=== PATIENT | male | born 2000 | race Two or more races ===

== ENCOUNTER 2024-06-06 19:59 | Emergency (ER) | payer MEDICAID, SELFPAY ==
[2024-06-06 20:01] VITALS: BMI 24.3
[2024-06-06 20:16] VITALS: BP 122/78; PULSE 94; RESP 18; TEMP 36.9; O2SAT 99
[2024-06-06] MEDS: CYCLObenzaPRINE 5 MG TABLET PO (20:42)
--- NOTE | 2024-06-06 20:42 | EDNOTE_ITS ---
ED Back Injury Pain RME/HPI General Chief Complaint: Back Pain/Injury Stated Complaint: BACK PAIN X5 MONTHS WORSE TODAY Time Seen by Provider: 06/06/24 20:19 Arrival date/time: 06/06/24 19:59 23M with no significant PMH presents to ED with 5 months of low back pain that got worse today. 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 Patient denies hematuria/dysuria, fall/trauma, paresthesia, and bowel/bladder incontinence. Limitations: no limitations Related Data Previous Rx's ?Medication ?Instructions ?Recorded cyclobenzaprine 5 mg tablet 5 mg PO TID PRN muscle spasm #30 06/06/24 tabs naproxen 500 mg tablet 500 mg PO BID PRN pain #30 tabs 06/06/24 Allergies Allergy/AdvReac Type Severity Reaction Status Date / Time No Known Allergies Allergy Verified 06/06/24 20:01 Review of Systems Review of Systems Systems Reviewed: All systems reviewed, normal except as documented Constitutional Constitutional: Reports system reviewed and no additional complaints, except as documented, Denies fever(s) and Denies headache(s) ENT Ears, Nose, Mouth, and Throat: Denies disequilibrium and Denies headache(s) Cardiovascular Cardiovascular: Reports system reviewed and no additional complaints, except as documented, Denies chest pain and Denies dyspnea Respiratory Respiratory: Reports system reviewed and no additional complaints, except as documented, Denies cough and Denies dyspnea Gastrointestinal Gastrointestinal: Reports system reviewed and no additional complaints, except as documented, Denies abdominal pain, Denies nausea and Denies vomiting Musculoskeletal Musculoskeletal: Reports as per HPI and Reports back pain Neurologic Neurologic: Reports system reviewed and no additional complaints, except as documented, Denies confusion, Denies disequilibrium and Denies headache(s) Psychiatric Psychiatric: Denies confusion Past Medical History Social History SMOKING STATUS: Never smoker ED Exam General Limitations: Present no limitations General appearance: Present alert and in no apparent distress Head Head exam: Present atraumatic Eye Eye exam: Present normal appearance, PERRL and EOMI ENT ENT exam: Present normal exam, normal oropharynx and mucous membranes moist Neck Neck exam: Present normal inspection, full ROM and trachea midline Chest Chest inspection: Present normal inspection and symmetric chest wall rise Respiratory Respiratory exam: Present normal lung sounds bilaterally Cardiovascular Cardiovascular exam: Present regular rate, normal rhythm and normal heart sounds Abdominal Exam Abdominal exam: Present soft and normal bowel sounds Extremities Exam Extremities exam: Present normal inspection and full ROM Back Exam Back exam: Present normal inspection and full ROM Neurological Exam Neurological exam: Present alert, oriented X3 and CN II-XII intact Psychiatric Psychiatric exam: Present normal affect and normal mood Skin Skin exam: Present warm, dry, intact and normal color Course Quality Measures none Orders Category Date Time Status CYCLObenzaPRINE [Flexeril] Med 06/06/24 20:27 Discontinued 5 mg PO X1 ONE Ketorolac Inj [Toradol Inj] Med 06/06/24 20:27 Discontinued 60 mg IM X1 ONE Vital Signs Vital signs: Vital Signs Temperature 98.5 F 06/06/24 20:16 Pulse Rate 94 06/06/24 20:16 Respiratory Rate 18 06/06/24 20:16 Blood Pressure 122/78 06/06/24 20:16 Pulse Oximetry (%) 99 06/06/24 20:16 Oxygen Delivery Method Room Air 06/06/24 20:16 O2 at 99% on RA and WNLs Back Pain / Injury MDM Narrative MDM Narrative:: 23M with no significant PMH presents to ED with 5 months of low back pain that got worse today. 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 Patient denies hematuria/dysuria, fall/trauma, paresthesia, and bowel/bladder incontinence. Physical exam reveals no back tenderness. Pain is with ROM, which is mostly intact. Patient is afebrile, calm, and alert. Meds improved symptoms. Rn Document Improvement given. Patient data External records reviewed:: None Clinical information provided by:: patient Social determinants that could affect healthcare access:: none Patient has the following chronic illnesses:: none How is presenting disease/condition affected by chronic disease/condition?: no chronic disease Evaluation data The following diagnostics were reviewed and interpreted by me:: other (specify) (none) Lab and/or radiology exams considered but not ordered:: not ordered Interpretation Summary: n/a Medications / Prescriptions Medications or Prescriptions considered but not ordered:: ordered Medication administrations:: Medication Administration History Discontinued Medications Cyclobenzaprine HCl (Cyclobenzaprine 5 Mg Tablet) 5 mg PO X1 ONE Stop: 06/06/24 20:28 Last Admin: 06/06/24 20:42 Dose: 5 mg Documented By: DOE Ketorolac Tromethamine (Ketorolac Inj 60 Mg/2 Ml Vial) 60 mg IM X1 ONE Stop: 06/06/24 20:28 Last Admin: 06/06/24 20:50 Dose: 60 mg Documented By: SF above Consultations Consultation(s) initiated? (list below): No Diagnosis Differential diagnosis back pain/injury: lumbar radiculopathy, sciatica, strain of lumbar region, renal colic, pyelonephritis, thoracic back pain, AAA and discitis Most likely diagnosis given after review of the tests above:: strain of lumbar region Admission Indicated Admission indicated?: not indicated Admission Request Was there a request for admission?: No Disposition Plan Disposition Plan: Discharge Discharge Attestation Discharge Attestation: The patient and all family members were given an opportunity to ask questions and understood the discharge instructions. Discharge instructions specifically effects, indications for sooner follow up or return to the emergency department, and the expected course of current diagnosis. Patient condition: Stable Discharge Plan Plan Patient Disposition: HOME (Self Care) Disposition Comment: Stable Prescriptions/Referrals Prescriptions/Med Rec: New naproxen 500 mg tablet 500 mg PO BID PRN (Reason: pain) Qty: 30 0RF cyclobenzaprine 5 mg tablet 5 mg PO TID PRN (Reason: muscle spasm) Qty: 30 0RF Referrals: Jose Bashir MD [Primary Care Provider] - In 1 week Problem List Clinical Impression: Strain of lumbar region Patient/Caregiver Discharge Instructions Education Materials: ED Back Sprain/Strain Additional Instructions: Please follow-up with PCP within 24-48 hours and return immediately if symptoms worsen. If problem persists, recommend outpatient PT and/or MRI follow-up. In the meantime, rest, use ice/heat, and/or compression. Print Language: Yi Stand Alone Forms: Patient Portal Info Letter PA/MANAGER HOME IMPROVEMENT Supervising Physician DAVID/TETE Supervising Physician: Dr. Coles
[2024-06-06] MEDS: KETOROLAC INJ 60 MG/2 ML VIAL IM (20:50)
== END 2024-06-06 21:46 | disposition home or self-care (01) ==
PROVIDERS: Emergency Provider Emergency Medicine; PCP Internal Medicine
DX: X58.XXXA Exposure to other specified factors, initial encounter (principal); S39.012A Strain of muscle, fascia and tendon of lower back, initial encounter
CPT/HCPCS: 96372; 99283; J1885; A9270

== ENCOUNTER → 2024-06-15 | Outpatient (CLI) | payer MEDICAID, SELFPAY ==
--- NOTE | 2024-06-15 14:54 | XR_ITS ---
Examination: Lumbar spine, 5 views Technique: Lumbar spine AP, lateral, coned lateral lower lumbar spine, bilateral obliques 5 views Exam date and time: June 15, 2024 1551 hours INDICATIONS: Low back pain beginning 3 months ago FINDINGS: Adequate alignment lumbar vertebral bodies on the lateral view No lumbar fracture No spondylolisthesis Mild disc narrowing L5-S1 IMPRESSION: Mild disc narrowing L5-S1
--- NOTE | 2024-06-15 14:55 | XR_ITS ---
Examination: Thoracic spine 3 views TECHNIQUE: AP lateral coned lateral upper dorsal spine 3 views Exam date and time: 2023 1558 hours INDICATIONS: Mid back pain beginning 3 months ago. FINDINGS: Adequate alignment thoracic vertebral bodies No thoracic fracture Intact pedicles Minimal diffuse thoracic disc narrowing IMPRESSION: Minimal diffuse thoracic disc narrowing
== END | disposition home or self-care (01) ==
PROVIDERS: PCP Nurse Practitioner Family; Referring Provider Nurse Practitioner Family; Visit Provider Nurse Practitioner Family
DX: M48.07 Spinal stenosis, lumbosacral region (principal); M48.04 Spinal stenosis, thoracic region
CPT/HCPCS: 72072; 72110

== ENCOUNTER → 2024-07-21 | Outpatient (CLI) | payer MEDICAID, SELFPAY ==
--- NOTE | 2024-07-21 16:30 | XR_ITS ---
Examination: MRI lumbar spine without contrast Date and time of exam: July 21, 2024 1802 hours INDICATIONS: Acute lower back pain radiating down the legs beginning 6 months ago Technique: Multiple MRI axial and sagittal sections lumbar spine. Sagittal T2-weighted images, TR 3500, TE 118 T1 weighted transverse sections, TR 688 T8.5, T2-weighted sagittal sections T1 weighted sagittal sections TR 621, TE 30 T2 axial sections, TR 4, 190, TE 84. Findings: Adequate alignment lumbar vertebral bodies on the lateral view No lumbar fracture Probable hemangiomatous change L5, sagittal image 10 No lumbar disc desiccation Axial images demonstrate no focal lumbar disc protrusion, no ganglionic compression Odd Shoe Examiner film demonstrates lumbar dextroscoliosis 8 degrees IMPRESSION: Lumbar dextroscoliosis 8 degrees No lumbar fracture No focal lumbar disc protrusion Recommend 3 month follow-up AP lateral lumbar spine to document stability of probable hemangiomatous change L5 vertebral body
== END | disposition home or self-care (01) ==
LOC: SMRI 07-27 07:46
PROVIDERS: PCP Nurse Practitioner Family; Referring Provider Nurse Practitioner Family; Visit Provider Nurse Practitioner Family
DX: M41.86 Other forms of scoliosis, lumbar region (principal)
CPT/HCPCS: 72148

== ENCOUNTER → 2024-07-25 | Outpatient (CLI) | payer MEDICAID, SELFPAY ==
--- NOTE | 2024-07-25 12:32 | XR_ITS ---
Examination: Cervical spine 3 views Technique one AP lateral coned AP odontoid cervical spine 3 views Exam date and time: July 25, 2024 1250 hours INDICATIONS: Neck pain beginning 4 weeks ago. FINDINGS: Reversal normal cervical lordosis. No cervical fracture. Intact odontoid Mild disc narrowing C6-7 IMPRESSION: No cervical fracture Mild disc narrowing C6-C7
== END | disposition home or self-care (01) ==
LOC: SDIM 12:23
PROVIDERS: PCP Nurse Practitioner Family; Referring Provider Nurse Practitioner Family; Visit Provider Nurse Practitioner Family
DX: M48.02 Spinal stenosis, cervical region (principal)
CPT/HCPCS: 72040

== ENCOUNTER → 2024-08-22 | Outpatient (CLI) | payer MEDICAID, SELFPAY ==
--- NOTE | 2024-08-22 12:15 | XR_ITS ---
Examination: MRI thoracic spine without contrast. Date and time of exam: August 22, 2024 1246 hours INDICATIONS: Bilateral acute thoracic spine pain beginning 6 months ago Technique: Multiple sagittal and axial images of the thoracic spine have been obtained. T1 weighted localizer, sagittal T2 weighted images, TR 30-50, TE 148, T1 weighted sagittal images, TR 650, TE 14, T2-weighted transverse images, TR 6770, TE 142 Findings: Adequate alignment thoracic vertebral bodies No thoracic fracture No significant thoracic disc desiccation Normal marrow signal thoracic vertebral bodies Axial images demonstrate no focal thoracic disc protrusion No impingement upon the thoracic cord No localized enlargement thoracic cord Impression: No thoracic fracture No focal thoracic disc protrusion No impingement upon the thoracic cord
== END | disposition home or self-care (01) ==
PROVIDERS: Referring Provider Nurse Practitioner Family; Visit Provider Nurse Practitioner Family
DX: M54.6 Pain in thoracic spine (principal)
CPT/HCPCS: 72146

== ENCOUNTER 2024-11-07 17:33 | Emergency (ER) | payer MEDICAID, SELFPAY ==
[2024-11-07 17:34] VITALS: BMI 56.9
[2024-11-07 18:18] VITALS: BP 110/74; PULSE 86; RESP 18; TEMP 36.8; O2SAT 98
--- NOTE | 2024-11-07 18:33 | EDNOTE_ITS ---
ED Animal Bite RME/HPI General Chief Complaint: Animal Bite Stated Complaint: DOG BITE TO BACK Time Seen by Provider: 11/07/24 18:24 Source: patient, RN notes reviewed and old records reviewed Arrival date/time: 11/07/24 17:33 Mode of arrival: ambulatory Limitations: no limitations RME / HPI RME / HPI narrative: 24yom presents to ED for dog bite. 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 A dog jumped up and bit his back (through his shirt) outside front of the house. Unknown dog immunization status. Patient's tetanus not up to date. 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 Related Data Previous Rx's ?Medication ?Instructions ?Recorded cyclobenzaprine 5 mg tablet 5 mg PO TID PRN muscle spa sm #30 06/06/24 tabs naproxen 500 mg tablet 500 mg PO BID PRN pain #30 t abs 06/06/24 amoxicillin 875 mg-potassium 1 tab PO BID 5 days #10 t abs 11/07/24 clavulanate 125 mg tablet Allergies Allergy/AdvReac Type Severity Reaction Status Date / Time No Known Allergies Allergy Verified 11/07/24 17:37 Review of Systems Review of Systems Systems Reviewed: All systems reviewed, normal except as documented Integumentary/Breasts Comments: Reports abrasion Past Medical History Surgical History OTHER SURGICAL HX: denies past surgical history Social History SMOKING STATUS: Never smoker SUBSTANCE USE: does not use ALCOHOL: Never Past Medical History Comments PMH COMMENT: Denies past medical history ED Exam General Limitations: Present no limitations General appearance: Present alert and in no apparent distress Head Head exam: Present atraumatic and normocephalic Eye Eye exam: Present normal appearance, PERRL and EOMI ENT ENT exam: Present normal exam and mucous membranes moist Neck Neck exam: Present normal inspection and full ROM Chest Chest inspection: Present normal inspection and symmetric chest wall rise Respiratory Respiratory exam: Present normal lung sounds bilaterally; Absent respiratory distress Cardiovascular Cardiovascular exam: Present regular rate and normal rhythm Extremities Exam Extremities exam: Present normal inspection and full ROM Back Exam Back exam: Present full ROM; Absent tenderness Neurological Exam Neurological exam: Present alert and oriented X3 Psychiatric Psychiatric exam: Present normal affect and normal mood Skin Skin exam: Present warm, dry, intact and other (Superficial right thoracic abrasion) Course Quality Measures none Orders Category Date Time Status TET,DIP/PERT AC (Adult)-Tdap [Boostrix Adult (Tdap) Med 11/07/24 18:35 Discontinued Vacc] 0.5 ml IMI .ONCE ONE Vital Signs Vital signs: Vital Signs Temperature 98.2 F 11/07/24 18:18 Pulse Rate 86 11/07/24 18:18 Respiratory Rate 18 11/07/24 18:18 Blood Pressure 110/74 11/07/24 18:18 Pulse Oximetry (%) 98 11/07/24 18:18 Oxygen Delivery Method Room Air 11/07/24 18:18 Animal Bite MDM Narrative MDM Narrative:: 24yom presents to ED for dog bite. 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 A dog jumped up and bit his back (through his shirt) outside front of the house. Unknown dog immunization status. Patient's tetanus not up to date. 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 Home wound care discussed. Tetanus vacc updated. Stable for dc, RTED precautions given. Patient data External records reviewed:: [facility] previous records (06/06/24 ED visit for lumbar strain) Clinical information provided by:: patient and friend Social determinants that could affect healthcare access:: other (specify) (poor access to healthcare) Patient has the following chronic illnesses:: none How is presenting disease/condition affected by chronic disease/condition?: no chronic disease Evaluation data The following diagnostics were reviewed and interpreted by me:: other (specify) (none) Lab and/or radiology exams considered but not ordered:: none Interpretation Summary: na Medications / Prescriptions Medications or Prescriptions considered but not ordered:: none Medication administrations:: Medication Administration History Discontinued Medications Diphtheria/Tetanus/Acell Pertussis (Diphth,Pertuss(Acell),Tet Vac 0.5 Ml Syr- Adult) 0.5 ml IMi .ONCE ONE Stop: 11/07/24 18:36 Last Admin: 11/07/24 18:59 Dose: 0.5 ml Documented By: KF above medications administered in ED Consultations Consultation(s) initiated? (list below): No Diagnosis Differential diagnosis animal bite: dog bite and other (laceration, abrasion, avulsion, skin tear) Most likely diagnosis given after review of the tests above:: abrasion Admission Indicated Admission indicated?: not indicated Admission Request Was there a request for admission?: No Disposition Plan Disposition Plan: Discharge Discharge Attestation Discharge Attestation: The patient and all family members were given an opportunity to ask questions and understood the discharge instructions. Discharge instructions specifically effects, indications for sooner follow up or return to the emergency department, and the expected course of current diagnosis. Patient condition: Stable Discharge Plan Plan Patient Disposition: HOME (Self Care) Patient condition on transfer: Stable Prescriptions/Referrals Prescriptions/Med Rec: New amoxicillin-pot clavulanate 875-125 mg tablet 1 tab PO BID 5 Days Qty: 10 0RF No Action cyclobenzaprine 5 mg tablet 5 mg PO TID PRN (Reason: muscle spasm) Qty: 30 0RF naproxen 500 mg tablet 500 mg PO BID PRN (Reason: pain) Qty: 30 0RF Problem List Clinical Impression: Dog bite, Abrasion of right side of back Patient/Caregiver Discharge Instructions Education Materials: Animal Bites and Scratches Print Language: Turkish Stand Alone Forms: Estela Award Info., Patient Portal Info Letter PA/CLIENT DELIVERY SPECIALIST Supervising Physician PA/CLIENT DELIVERY SPECIALIST Supervising Physician: Navi
[2024-11-07] MEDS: DIPHTH,PERTUSS(ACELL),TET VAC 0.5 ML SYR- ADULT IMi (18:59)
== END 2024-11-07 19:03 | disposition home or self-care (01) ==
PROVIDERS: Emergency Provider Emergency Medicine
DX: S20.411A Abrasion of right back wall of thorax, initial encounter (principal); W54.0XXA Bitten by dog, initial encounter; Z23 Encounter for immunization
CPT/HCPCS: 90471; 90715; 99282